=== PATIENT | female | born 1995 | race African-American/Black ===

== ENCOUNTER 2020-11-18 05:49 | Inpatient (IN) ==
[2020-11-18] MEDS ORDERED: BUTORPHANOL 1 MG/ML VIAL IV PRN (06:19)
[2020-11-18] MEDS ORDERED: ONDANSETRON 4 MG/2 ML VIAL IV PRN (06:19)
[2020-11-18] MEDS ORDERED: fentaNYL 2 MCG/ROPIV 0.2% EPID 100 ML EPIDURAL ONE (06:24)
[2020-11-18] MEDS ORDERED: ePHEDrine 50 MG/ML VIAL ONE (06:24)
[2020-11-18] MEDS ORDERED: CITRIC ACID/SODIUM CITRATE 30 ML UDCUP ONE (06:24)
[2020-11-18] MEDS ORDERED: hydrOXYzine HCL 25 MG/1 ML VIAL IM PRN (06:25)
[2020-11-18] MEDS ORDERED: ONDANSETRON 4 MG/2 ML VIAL IV ONE (06:25)
[2020-11-18] MEDS ORDERED: ePHEDrine 50 MG/ML VIAL IV PRN (06:25)
[2020-11-18] MEDS ORDERED: PROMETHAZINE 25 MG/1 ML VIAL IM ONE (06:25)
[2020-11-18] MEDS ORDERED: CITRIC ACID/SODIUM CITRATE 30 ML UDCUP PO ONE (06:25)
[2020-11-18] MEDS ORDERED: NALOXONE 0.4 MG/ML VIAL IV PRN (06:25)
[2020-11-18] MEDS ORDERED: diphenhydrAMINE 50 MG/1 ML VIAL IV PRN ×2 (06:25)
[2020-11-18] MEDS ORDERED: FAMOTIDINE 20 MG/2 ML VIAL IV ONE ×2 (06:25)
[2020-11-18] MEDS ORDERED: LACTATED RINGERS 1,000 ML IV ONE (06:25)
[2020-11-18] MEDS ORDERED: OXYTOCIN/LR 20 UNIT/1,000 ML BAG IV SCH (06:30)
[2020-11-18] MEDS ORDERED: fentaNYL 2 MCG/ROPIV 0.2% EPID 100 ML EPIDURAL SCH (06:30)
[2020-11-18] MEDS ORDERED: LACTATED RINGERS 1,000 ML IV SCH (06:30)
[2020-11-18 06:46] LABS: Basophils % 0.4 % (0.0-0.8); Eosinophils % 0.4 % (0.00-10.9); Hemoglobin 14.2 GM/DL (12.0-16.0); Immature Granulocytes % 0.5 %; Immature Granulocytes Absolute 0.03 #; Lymphocytes # 1.2 10*3/uL (1.4-4.0); Lymphocytes % 22.5 % (21.3-54.2); Mean Corpuscular HGB Conc 34.6 GM/DL (32-36); Mean Corpuscular Volume 93.4 FL (87-102); Mean Platelet Volume 11.4 FL (9.6-12.0); Monocytes % 8.3 % (1.7-12.7); Neutrophils % 67.9 % (38.7-73.9); Platelet Count 164 T/CUMM (130-400); Red Blood Count 4.39 MC/CUMM (3.8-5.5); Red Cell Distribution Width 12.5 % (9.3-17.3); White Blood Count 5.5 T/CUMM (4-12)
[2020-11-18 07:16] LABS: Albumin 2.9 G/DL (3.4-5.0); Bilirubin,Total 0.6 MG/DL (0.20-1.00); Calcium 8.5 MG/DL (8.5-10.1); Osmolality,Calculated 274.4 MOS/KG (273-304); Total Protein 6.5 G/DL (6.4-8.2)
[2020-11-18 07:18] LABS: Potassium 2.4 MMOL/L (3.5-5.1)
[2020-11-18] MEDS: POTASSIUM CHLORIDE RIDER 10 MEQ/100 ML PREMIX IV PRN ×6 (08:20→23:00)
[2020-11-18 08:34] LABS: HIV Antigen/Antibody Result Nonreactive (Nonreactive); Hepatitis B Surface Ag Quant < 0.10 Index; Hepatitis B Surface Ag Result Non-Reactive (NonReactive); Rubella Antibody IgG Result Reactive (NonReactive)
[2020-11-18] MEDS ORDERED: OXYTOCIN/LR 20 UNIT/1,000 ML BAG IV ONE ×2 (08:34→17:26)
[2020-11-18] MEDS ORDERED: TRANEXAMIC ACID 1,000 MG/10 ML VIAL ONE ×2 (10:27→10:28)
[2020-11-18] MEDS ORDERED: miSOPROStoL 200 MCG TABLET ONE (10:27)
[2020-11-18] MEDS ORDERED: METHYLERGONOVINE 0.2 MG/1 ML AMP ONE (10:27)
[2020-11-18] MEDS ORDERED: CARBOPROST TROMETHAMINE 250 MCG/ML AMP IM ONE (10:28)
[2020-11-18] MEDS ORDERED: ceFAZolin 2,000 MG/50 ML DUPLEX IV ONE ×2 (12:49→12:54)
[2020-11-18] MEDS ORDERED: LIDOCAINE MPF 2% /EPI 20 ML VIAL ONE (12:51)
[2020-11-18] MEDS ORDERED: ONDANSETRON 4 MG/2 ML VIAL ONE (12:52)
[2020-11-18] MEDS ORDERED: ACETAMINOPHEN INJ 1,000 MG/100 ML VIAL IV ONE ×2 (12:54→13:10)
[2020-11-18] MEDS ORDERED: KETOROLAC 30 MG/1 ML VIAL ONE (13:10)
[2020-11-18] MEDS ORDERED: MIDAZOLAM 2 MG/2 ML VIAL ONE (13:30)
[2020-11-18 13:36] LABS: Cord Arterial Blood HCO3 22.1 MMOL/L
[2020-11-18 13:36] LABS: Cord Venous Blood HCO3 26.3 MMOL/L; Cord Venous Blood PCO2 51.7 MMHG; Cord Venous Blood PO2 33.3 MMHG
[2020-11-18] MEDS ORDERED: TISSUE ADHESIVE 1 EACH APPLICATOR TOP ONE (13:54)
[2020-11-18] MEDS ORDERED: KETOROLAC 30 MG/1 ML VIAL IV SCH (14:00)
[2020-11-18] MEDS ORDERED: RHO(D) IMMUNE GLOBULIN 300 MCG SYRINGE IM ONE (17:26)
[2020-11-18 18:38] LABS: Bacteria,Urine Occasional /HPF (Few); Bilirubin,Urine Negative (Negative); Blood, Urine Moderate mg/dL (Negative); Glucose,Urine (UA) Negative (Negative); Ketones,Urine 20 mg/dL (Negative); Mucus,Urine Occasional /LPF (Occasional); Nitrite,Urine Negative (Negative); Protein,Urine 100 MG/DL; RBC,Urine 39 /HPF (0-4); Urine Appearance CLEAR (Clear); Urine Color Yellow (Yellow); Urine Specific Gravity 1.027 (1.001-1.035); Urine Urobilinogen < 2.0 EU/DL (0.2-1.0)
[2020-11-18] MEDS: ACETAMINOPHEN 500 MG TABLET PO SCH ×2 (19:35→22:27)
[2020-11-18] MEDS: KETOROLAC 30 MG/1 ML VIAL IV SCH (19:35)
[2020-11-18] MEDS: LACTATED RINGERS 1,000 ML IV SCH (19:55)
[2020-11-18] MEDS: DOCUSATE SODIUM 100 MG CAPSULE PO SCH (22:00)
[2020-11-19] MEDS: KETOROLAC 30 MG/1 ML VIAL IV SCH ×2 (03:30→12:06)
[2020-11-19] MEDS: SIMETHICONE CHEW 80 MG TABLET PO PRN ×2 (03:32→09:57)
[2020-11-19] MEDS: LACTATED RINGERS 1,000 ML IV SCH ×2 (03:34→08:42)
[2020-11-19 04:14] LABS: Basophils % 0.5 % (0.0-0.8); Eosinophils % 0.5 % (0.00-10.9); Hematocrit 30.7 VOL% (35.7-47.0); Immature Granulocytes % 0.5 %; Immature Granulocytes Absolute 0.04 #; Lymphocytes # 1.4 10*3/uL (1.4-4.0); Mean Corpuscular HGB Conc 34.2 GM/DL (32-36); Mean Corpuscular Volume 95.3 FL (87-102); Mean Platelet Volume 11.2 FL (9.6-12.0); Neutrophils % 75.5 % (38.7-73.9); Platelet Count 140 T/CUMM (130-400)
[2020-11-19 04:16] LABS: Hemoglobin 10.5 GM/DL (12.0-16.0); Red Blood Count 3.22 MC/CUMM (3.8-5.5); White Blood Count 8.7 T/CUMM (4-12)
[2020-11-19] MEDS: POTASSIUM CHLORIDE 20 MEQ TABLET PO PRN ×4 (04:40→12:07)
[2020-11-19] MEDS ORDERED: MULTIVITAMIN (PRENATAL) TABLET PO SCH (09:00)
[2020-11-19] MEDS: DOCUSATE SODIUM 100 MG CAPSULE PO SCH ×2 (09:57→20:43)
[2020-11-19] MEDS: MULTIVITAMIN (PRENATAL) TABLET PO SCH (09:58)
[2020-11-19] MEDS: MAGNESIUM HYDROXIDE SUSP 30 ML UDCUP PO PRN ×2 (14:50→20:43)
[2020-11-20] MEDS: MULTIVITAMIN (PRENATAL) TABLET PO SCH (07:24)
[2020-11-20] MEDS: MAGNESIUM HYDROXIDE SUSP 30 ML UDCUP PO PRN (07:24)
[2020-11-20] MEDS: DOCUSATE SODIUM 100 MG CAPSULE PO SCH (07:24)
[2020-11-20 08:18] VITALS: BP 134/58
[2020-11-20] MEDS ORDERED: IBUPROFEN 800 MG TABLET PO SCH ×2 (08:21→15:00)
== END 2020-11-20 13:10 | disposition home or self-care (01) | DRG 788 ==
LOC: N.LD 05:49 → N.OB 11-19 10:50
PROVIDERS: ADMIT Obstetrics & Gynecology; ATTEND Obstetrics & Gynecology
PROC: LDCSECT (ICD-10-PCS; 2020-11-18 13:00)